=== PATIENT | female | born 1945 | race Caucasian/White ===

== ENCOUNTER 2018-02-11 16:57 | Emergency (ER) | payer MEDICARE, MEDICAID ==
[2018-02-11 17:12] VITALS: BP 122/63
--- NOTE | 2018-02-11 17:24 | UC ---
Skin Complaint HPI - HPI Summary HPI Summary: Pt c/o abscess to right upper posterior thigh. Pt's granddaughter reports that abscess was firm and scabbed last night. pt noted that the wound was draining serous sanguinous and purulent fluid this morning. - History of Current Complaint Chief Complaint: UCSkin Time Seen by Provider: 02/11/18 17:10 Stated Complaint: BOIL RIGHT LEG Hx Obtained From: Patient ?: No Onset/Duration: Gradual Onset, Resolved Skin Exposure Onset/Duration: Days Ago Timing: Constant Onset Severity: Mild Current Severity: Moderate Pain Intensity: 7 Location: Discrete - right upper posterior thigh Character: Pain, Redness, Raised, Painful Aggravating Factor(s): Touch Alleviating Factor(s): OTC Creams/Salves Associated Signs & Symptoms: Positive: Drainage, Tenderness - Allergy/Home Medications Allergies/Adverse Reactions: Allergies Allergy/AdvReac Type Severity Reaction Status Date / Time acetaminophen Allergy Rash Verified 02/11/18 17:13 Adhesive Tape Allergy Rash Verified 06/27/14 08:38 aspirin Allergy Rash Verified 02/11/18 17:13 diphenhydramine Allergy Rash Verified 02/11/18 17:13 [From Benadryl] oxycodone Allergy Rash Verified 02/11/18 17:13 Penicillins Allergy Rash Verified 02/11/18 17:13 peaches Allergy Rash Uncoded 06/27/14 08:38 Tomatoes Allergy Rash Uncoded 06/27/14 08:38 Home Medications: Home Medications Loratadine 10 mg PO DAILY 02/11/18 [History Confirmed 02/11/18] Mometasone NASAL (NF) [Nasonex (NF)] 1 each INH DAILY 02/11/18 [History Confirmed 02/11/18] Montelukast Sodium 10 mg PO DAILY 02/11/18 [History Confirmed 02/11/18] Umeclidin 62.5 MDI(NF) [Incruse ELLIPTA MDI (NF)] 1 puff INH DAILY 02/11/18 [ History Confirmed 02/11/18] Review of Systems Constitutional: Negative Skin: Other - tenderness, drainage from wound site, abscess Eyes: Negative ENT: Negative Respiratory: Negative Cardiovascular: Negative Gastrointestinal: Negative Genitourinary: Negative Motor: Negative Neurovascular: Negative Musculoskeletal: Negative Neurological: Negative Psychological: Negative Is Patient Immunocompromised?: No All Other Systems Reviewed And Are Negative: Yes PMH/Surg Hx/FS Hx/Imm Hx Previously Healthy: No - obese Endocrine History: Diabetes Respiratory History: COPD - Surgical History Surgical History: Yes Surgery Procedure, Year, and Place: 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 BLADDER REPAIR - Family History Known Family History: Positive: Cardiac Disease - Social History Occupation: Retired Lives: Alone Alcohol Use: None Substance Use Type: None Smoking Status (MU): Former Smoker Have You Smoked in the Last Year: No Physical Exam Triage Information Reviewed: Yes Appearance: Well-Appearing, Obese Vital Signs: Initial Vital Signs Temp 99.4 F 02/11/18 17:04 Pulse 81 02/11/18 17:04 Resp 24 02/11/18 17:04 BP 122/63 02/11/18 17:04 Pulse Ox 95 02/11/18 17:04 Vital Signs Reviewed: Yes Eye Exam: Normal ENT Exam: Normal ENT: Positive: Other - O2 via nasal cannula applied Dental Exam: Normal Neck exam: Normal Respiratory: Positive: Decreased breath sounds Cardiovascular: Positive: Murmur:Sys:Grade _?_/ Musculoskeletal: Positive: ROM Limited @ - generalized Neurological Exam: Normal Psychological Exam: Normal Skin Exam: Other - scabbed area ~ 2 cm wide, right upper posterior thigh. soft, non flucuant, non erythematous Course/Dx - Differential Diagnoses - Skin Complaint Differential Diagnoses: Abscess, Cellulitis, MRSA - Diagnoses Provider Diagnoses: healing wound Discharge - Sign-Out/Discharge Documenting (check all that apply): Patient Departure - Discharge Plan Condition: Stable Disposition: HOME Prescriptions: DOXYcycline CAP(*) [DOXYcycline 100MG CAP(*)] 100 mg PO Q12H #20 cap Fluconazole 100 MG TAB* [Diflucan 100 MG TAB*] 100 mg PO DAILY #2 tab Patient Education Materials: Acute Wound Care (ED), Acute Wounds (ED) Referrals: Olive Abdi MD [Primary Care Provider] - If Needed - Billing Disposition and Condition Condition: STABLE Disposition: Home
[2018-02-11] MEDS ORDERED: DOXYcycline CAP(*) 100 MG PO ONE (17:30)
== END 2018-02-11 17:37 | disposition home or self-care (01) ==
LOC: UCCORT 16:57
DX: S71.101A Unspecified open wound, right thigh, initial encounter (principal); Z88.6 Allergy status to analgesic agent; Z88.5 Allergy status to narcotic agent; Z88.0 Allergy status to penicillin; Z88.8 Allergy status to other drugs, medicaments and biological substances; E11.9 Type 2 diabetes mellitus without complications; Z87.891 Personal history of nicotine dependence
CPT/HCPCS: 99202; A9270-GY; G0463

== ENCOUNTER 2019-02-25 11:41 | Emergency (ER) | payer MEDICARE, MEDICAID ==
[2019-02-25 12:59] VITALS: BP 108/52
--- NOTE | 2019-02-25 12:59 | UC ---
Lower Extremity/Ankle HPI - HPI Summary HPI Summary: 74 yo female presents with nurse aid with complaints of left toe pain. Pt tells me that on 02/21 she stepped on her oxygen tubing and felt some pain in her left toe that improved as the day went on. The next day she noticed increased pain and redness to the area. Since that time has had increasing swelling, pain, and redness to the area. Aide with her says pt gets cellulitis often and very easily and is concerned that is what has happened to her toe/foot. Pt denies fever. - History of Current Complaint Chief Complaint: UCLowerExtremity Stated Complaint: LEFT FOOT PAIN Time Seen by Provider: 02/25/19 12:59 Hx Obtained From: Patient Onset/Duration: Gradual Onset Severity Initially: Moderate Severity Currently: Moderate Pain Intensity: 7 Pain Scale Used: 0-10 Numeric Aggravating Factor(s): Standing, Ambulation Alleviating Factor(s): Rest, Elevation Able to Bear Weight: Yes - Allergies/Home Medications Allergies/Adverse Reactions: Allergies Allergy/AdvReac Type Severity Reaction Status Date / Time acetaminophen Allergy Rash Verified 02/25/19 12:53 Adhesive Tape Allergy Rash Verified 02/25/19 12:53 aspirin Allergy Rash Verified 02/25/19 12:53 diphenhydramine Allergy Rash Verified 02/25/19 12:53 [From Benadryl] oxycodone Allergy Rash Verified 02/25/19 12:53 Penicillins Allergy Rash Verified 02/25/19 12:53 peaches Allergy Rash Uncoded 02/25/19 12:53 Tomatoes Allergy Rash Uncoded 02/25/19 12:53 Home Medications: Home Medications Hydrocodone/Acetaminophen [Hydrocodone/Acetaminophen 5-325 mg] 1 tab PO Q6H PRN 02/25/19 [History Confirmed 02/25/19] Rivaroxaban TAB(*) [Xarelto 10 mg (*)] 10 mg PO DAILY 02/25/19 [History Confirmed 02/25/19] Umeclidinium 62.5 MDI(NF) [Incruse ELLIPTA MDI (NF)] 1 inh INH DAILY 02/25/19 [ History Confirmed 02/25/19] PMH/Surg Hx/FS Hx/Imm Hx Endocrine History: Diabetes, Dyslipidemia Cardiovascular History: Cardiac Disease, Hypertension Respiratory History: COPD - Surgical History Surgical History: Yes Surgery Procedure, Year, and Place: 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 BLADDER REPAIR - Family History Known Family History: Positive: Cardiac Disease - Social History Alcohol Use: None Substance Use Type: None Smoking Status (MU): Former Smoker Have You Smoked in the Last Year: No When Did the Patient Quit Smoking/Using Tobacco: 2005 Review of Systems All Other Systems Reviewed And Are Negative: Yes Constitutional: Positive: Negative Skin: Positive: Negative Respiratory: Positive: Negative Cardiovascular: Positive: Negative Musculoskeletal: Positive: Other: - pain, swelling, redness left toe Neurological: Positive: Negative Psychological: Positive: Negative Physical Exam - Summary Physical Exam Summary: GENERAL: NAD. WDWN. No pain distress. SKIN: LEFT FOOT: 1st MTP with moderate erythema, edema, and TTP. Mild warmth. No open wounds, streaking, or ecchymosis. NECK: Supple. Nontender. No lymphadenopathy. CHEST: No accessory muscle use. Breathing comfortably and in no distress. CV: Pulses intact. Cap refill <2seconds MSK: FROM left great toe, but has pain. NEURO: Alert. PSYCH: Age appropriate behavior. Triage Information Reviewed: Yes Vital Signs: Initial Vital Signs Temp 97.1 F 02/25/19 12:53 Pulse 76 02/25/19 12:53 Resp 20 02/25/19 12:53 BP 108/52 02/25/19 12:53 Pulse Ox 96 02/25/19 12:53 Vital Signs Reviewed: Yes Lower Extremity Course/Dx - Course Course Of Treatment: XR: IMPRESSION: No fracture is noted. Cortical thickening of the third and fourth metatarsals. Suspect cellulitis. Will rx for doxycycline and have her f/u with her PCP in 2- 3 days for a recheck - Differential Dx/Diagnosis Provider Diagnosis: Cellulitis Discharge - Sign-Out/Discharge Documenting (check all that apply): Patient Departure All imaging exams completed and their final reports reviewed: Yes - Discharge Plan Condition: Stable Disposition: HOME Prescriptions: DOXYcycline CAP(*) [DOXYcycline 100MG CAP(*)] 100 mg PO BID #14 cap Patient Education Materials: Cellulitis (ED) Referrals: Brittanie Power MD [Primary Care Provider] - Additional Instructions: If you develop a fever, shortness of breath, chest pain, new or worsening symptoms - please call your PCP or go to the ED immediately. Elevate your foot to reduce pain and swelling. I recommend that you be rechecked by your primary doctor in 2-3 days to insure the area is improving. - Billing Disposition and Condition Condition: STABLE Disposition: Home
== END 2019-02-25 13:53 | disposition home or self-care (01) ==
LOC: UCCORT 11:41
DX: L03.032 Cellulitis of left toe (principal); I11.9 Hypertensive heart disease without heart failure; E11.9 Type 2 diabetes mellitus without complications; J44.9 Chronic obstructive pulmonary disease, unspecified; Z87.891 Personal history of nicotine dependence
CPT/HCPCS: 99212; G0463